=== PATIENT | female | born 1990 | race Caucasian/White ===

== ENCOUNTER 2020-08-29 23:41 | Emergency (ER) | payer MEDICAID ==
[~2020-08-29] VITALS: Ht 165.1 cm; Wt 90.0 kg
[2020-08-30] MEDS ORDERED: ACETAMINOPHEN 325MG TABLET PO ONE (00:15)
[2020-08-30 01:42] VITALS: BP 143/72
== END 2020-08-30 01:44 | disposition home or self-care (01) ==
LOC: ER 23:41
DX: S90.122A Contusion of left lesser toe(s) without damage to nail, initial encounter (principal); E03.9 Hypothyroidism, unspecified; Z88.5 Allergy status to narcotic agent; Z90.89 Acquired absence of other organs; W22.8XXA Striking against or struck by other objects, initial encounter; Y93.89 Activity, other specified; Y92.018 Other place in single-family (private) house as the place of occurrence of the external cause
CPT/HCPCS: 73630; 99283